=== PATIENT | female | born 1995 | race Caucasian/White ===

== ENCOUNTER 2019-01-17 16:53 | Emergency (ER) | payer MEDICAID, OTHER ==
[2019-01-17 17:36] LABS: BASOPHILS # (AUTO) 0.1 10^3/uL (0.0-0.1); BASOPHILS % (AUTO) 0.7 %; EOSINOPHILS # (AUTO) 0.3 10^3/uL (0.0-0.7); EOSINOPHILS % (AUTO) 3.3 %; HGB - HEMOGLOBIN 13.1 g/dL (12.0-16.0); LYMPHOCYTES # (AUTO) 2.6 10^3/uL (1.5-3.5); LYMPHOCYTES % (AUTO) 27.4 %; MEAN CORPUSCULAR HGB CONC 34.3 g/dL (32.0-36.0); MEAN CORPUSCULAR VOLUME 87.6 fL (81.0-99.0); MEAN PLATELET VOLUME 9.1 fL (7.9-10.8); MONOCYTES # (AUTO) 0.5 10^3/uL (0.0-1.0); MONOCYTES % (AUTO) 5.4 %; NEUTROPHILS # (AUTO) 5.9 10^3/uL (1.5-6.6); NEUTROPHILS % (AUTO) 62.8 %; PLT - PLATELET COUNT 428 10^3/uL (130-450); RED BLOOD COUNT 4.36 10^6/uL (4.20-5.40); RED CELL DISTRIBUTION WIDTH 11.8 % (12.0-15.0); WHITE BLOOD COUNT 9.4 x10^3/uL (4.8-10.8)
[2019-01-17 17:48] LABS: ALBUMIN 4.4 g/dL (3.2-5.5); ALBUMIN/GLOBULIN RATIO 1.4 (1.0-2.2); BILIRUBIN,TOTAL 0.6 mg/dL (0.2-1.0); CALCIUM 9.9 mg/dL (8.5-10.3); CREATININE 0.7 mg/dL (0.4-1.0); TOTAL PROTEIN 7.6 g/dL (6.7-8.2)
[2019-01-17 18:05] LABS: BILIRUBIN,URINE NEGATIVE (NEGATIVE); GLUCOSE, URINE (UA) NEGATIVE (NEGATIVE); KETONES,URINE (UA) 15 mg/dL (NEGATIVE); LEUKOCYTE ESTERASE, URINE NEGATIVE (NEGATIVE); NITRITE,URINE NEGATIVE (NEGATIVE); OCCULT BLOOD,URINE NEGATIVE (NEGATIVE); PROTEIN,URINE NEGATIVE (NEGATIVE); UROBILINOGEN,URINE 0.2 (NORMAL) E.U./dL (NORMAL)
[2019-01-17 18:09] LABS: CLARITY,URINE CLEAR (CLEAR)
--- NOTE | 2019-01-17 19:28 | ED Physician Documentation ---
History of Present Illness - Stated complaint Stated Complaint: FEMALE - Chief complaint Chief Complaint: Abd Pain - History obtained from History obtained from: Patient - History of Present Illness Timing: Today Pain level max: 2 Pain level now: 1 Improved by: nothing Worsened by: nothing - Additonal information Additional information: , EGA 6 weeks. slight vaginal spotting today. Mild cramping. Review of Systems Constitutional: denies: Fever, Chills, Myalgias GI: denies: Vomiting, Diarrhea : denies: Dysuria, Frequency, Hesitancy Skin: denies: Rash Musculoskeletal: denies: Neck pain, Back pain PD PAST MEDICAL HISTORY - Past Medical History Past Medical History: No Cardiovascular: None Respiratory: None Neuro: None Endocrine/Autoimmune: None GI: None YOUTH ASSOCIATE: None : None HEENT: None Psych: None Musculoskeletal: None Derm: None - Past Surgical History Past Surgical History: Yes Ortho: Other - Present Medications Home Medications: Ambulatory Orders Medication Instructions Recorded Confirmed No Known Home Medications 11/01/14 11/01/14 - Allergies Allergies/Adverse Reactions: Allergies Allergy/AdvReac Type Severity Reaction Status Date / Time No Known Drug Allergies Allergy Verified 01/17/19 17:03 - Social History Does the pt smoke?: No Smoking Status: Never smoker Does the pt drink ETOH?: No Does the pt have substance abuse?: No - Immunizations Immunizations are current?: Yes - POLST Patient has POLST: No PD ED PE NORMAL - Vitals Vital signs reviewed: Yes - General General: Alert and oriented X 3, No acute distress, Well developed/nourished - HEENT HEENT: Moist mucous membranes - Neck Neck: Supple, no meningeal sign - Cardiac Cardiac: RRR - Respiratory Respiratory: No respiratory distress, Clear bilaterally - Abdomen Abdomen: Soft, Non tender, Non distended - Back Back: No CVA TTP, No spinal TTP - Derm Derm: Warm and dry - Extremities Extremities: No edema - Neuro Neuro: Alert and oriented X 3 - Psych Psych: Normal mood, Normal affect Results - Vitals Vitals: Vital Signs - 24 hr 01/17/19 01/17/19 17:00 21:55 Temperature 36.9 C 36.6 C Heart Rate 95 73 Respiratory 19 18 Rate Blood Pressure 120/75 115/74 O2 Saturation 98 99 Oxygen O2 Source Room air - Labs Labs: Laboratory Tests 01/17/19 01/17/19 01/17/19 17:29 17:31 17:31 WBC 9.4 RBC 4.36 Hgb 13.1 Hct 38.2 MCV 87.6 MCH 30.0 MCHC 34.3 RDW 11.8 L Plt Count 428 MPV 9.1 Neut # (Auto) 5.9 Lymph # (Auto) 2.6 [place] # (Auto) 0.5 Eos # (Auto) 0.3 Baso # (Auto) 0.1 Absolute Nucleated RBC 0.00 Nucleated RBC % 0.0 Sodium 137 Potassium 3.6 Chloride 104 Carbon Dioxide 22 Anion Gap 11.0 BUN 10 Creatinine 0.7 Estimated GFR (MDRD) 104 Glucose 84 Calcium 9.9 Total Bilirubin 0.6 AST 16 ALT 14 Alkaline Phosphatase 52 Total Protein 7.6 Albumin 4.4 Globulin 3.2 Albumin/Globulin Ratio 1.4 Lipase 32 HCG, Quant 19970.00 Urine Color Urine Clarity Urine pH Ur Specific Bronson Urine Protein Urine Glucose (UA) Urine Ketones Urine Occult Blood Urine Nitrite Urine Bilirubin Urine Urobilinogen Ur Leukocyte Esterase Ur Microscopic Review Urine Culture Comments Blood Type 01/17/19 01/17/19 17:58 20:21 WBC RBC Hgb Hct MCV MCH MCHC RDW Plt Count MPV Neut # (Auto) Lymph # (Auto) [place] # (Auto) Eos # (Auto) Baso # (Auto) Absolute Nucleated RBC Nucleated RBC % Sodium Potassium Chloride Carbon Dioxide Anion Gap BUN Creatinine Estimated GFR (MDRD) Glucose Calcium Total Bilirubin AST ALT Alkaline Phosphatase Total Protein Albumin Globulin Albumin/Globulin Ratio Lipase HCG, Quant Urine Color YELLOW Urine Clarity CLEAR Urine pH 6.0 Ur Specific [place]onson 1.010 Urine Protein NEGATIVE Urine Glucose (UA) NEGATIVE Urine Ketones 15 H Urine Occult Blood NEGATIVE Urine Nitrite NEGATIVE Urine Bilirubin NEGATIVE Urine Urobilinogen 0.2 (NORMAL) Ur Leukocyte Esterase NEGATIVE Ur Microscopic Review NOT INDICATED Urine Culture Comments NOT INDICATED Blood Type O POSITIVE - Rads (name of study) OB US Radiology: Prelim report reviewed, EMP read contemporaneously, See rad report (Single intrauterine of uncertain viability, at EGA 6 weeks/0 days with ALO 09/12/2019 based on crown-rump length. 2. Challenging assessment of heart rate due to tiny CRL (less than 7 mm). 3. Two small perigestational collection/ hematoma measuring 1.1 x 0.5 cm and 0.8 x 0.4 cm. 4. A repeat ultrasound is recommended in 1-2 weeks for viability. ) PD MEDICAL DECISION MAKING - ED course Complexity details: reviewed results, re-evaluated patient, considered differential, d/w patient, d/w family ED course: Patient with a threatened miscarriage today. She does appear to have an intrauterine at this time. We will have her follow-up with her OB in 3 days for repeat hCG. She should have a repeat ultrasound in 1 to 2 weeks as well. Patient counseled regarding signs and symptoms for which I believe and urgent re-evaluation would be necessary. Patient with good understanding of and agreement to plan and is comfortable going home at this time This document was made in part using voice recognition software. While efforts are made to proofread this document, sound alike and grammatical errors may occur. Departure - Departure Disposition: 01 Home, Self Care Clinical Impression: Vaginal bleeding in patient at less than 20 weeks gestation Condition: Good Instructions: ED Miscarriage Poss, ED Preg Established Normal Sxs Follow-Up: your,doctor in 3 days for repeat HCG [Other] Comments: Return if you worsen. Follow-up with your doctor in 3 days for repeat hCG. It was 22,000 today. You are approximately 6 weeks and 2 days along Discharge Date/Time: 01/17/19 21:56
[2019-01-17 21:56] VITALS: BP 115/74
--- NOTE | 2019-01-17 21:59 | Ultrasound Report ---
Reason: 6 weeks EGA, pelvic cramping, vag bleed Procedure Date: 01/17/2019 Accession Number: [id number] / [id number] Procedure: US - OB First Trimester CPT Code: FULL RESULT: EXAM: FIRST TRIMESTER OBSTETRIC ULTRASOUND (Less than 11 weeks) EXAM DATE: 01/17/2019 09:09 PM. CLINICAL HISTORY: 6 weeks EGA, pelvic cramping, vag bleed. LMP: Unknown. COMPARISONS: None. TECHNIQUE: Transabdominal and transvaginal ultrasound examination with static image documentation. ASSESSMENT: Gestational Sac: Single intrauterine. Mean gestational sac diameter: 13 mm = 6 weeks/1 days. Embryo: CRL (crown-rump length) 4 mm = 6 weeks/0 days. Cardiac activity: ?114 beats per minute. Challenging assessment of heart rate due to tiny CRL. Yolk sac: 3 mm. Other: A small perigestational fluid collection inferiorly, measuring 1.1 x 0.5 cm. Another smaller perigestational fluid collection superiorly measuring 0.8 x 0.4 cm. MATERNAL STRUCTURES: Uterus: Anteverted/Retroverted. Unremarkable. Cervix: Closed. Right Ovary/Adnexa: The ovary measures 3.4 x 2.4 x 2.5 cm, volume 10.4 cc. A corpus luteal cyst seen measuring 1.6 x 1.9 x 2 cm Left Ovary/Adnexa: The ovary measures 3.3 x 1.6 x 1.6 cm, volume 4.5 cc. Unremarkable. Free Fluid: None. Other: None. IMPRESSION: 1. Single intrauterine of uncertain viability, at EGA 6 weeks/0 days with ALO 09/12/2019 based on crown-rump length. 2. Challenging assessment of heart rate due to tiny CRL (less than 7 mm). 3. Two small perigestational collection/ hematoma measuring 1.1 x 0.5 cm and 0.8 x 0.4 cm. 4. A repeat ultrasound is recommended in 1-2 weeks for viability. RADIA
== END 2019-01-17 21:56 | disposition home or self-care (01) ==
LOC: ED 16:53
DX: O20.0 Threatened abortion (principal); O26.851 Spotting complicating pregnancy, first trimester; Z3A.01 Less than 8 weeks gestation of pregnancy
CPT/HCPCS: 36415; 76801; 76817; 80053; 81001; 81003; 81025; 83690; 84702; 85025; 86850; 86900; 86901; 87086; 99283

== ENCOUNTER 2019-04-26 06:51 | Outpatient (CLI) | payer BC ==
--- NOTE | 2019-04-29 12:20 | Ultrasound Report ---
Reason: SUPER OF NORMAL 1ST Procedure Date: 04/26/2019 Accession Number: [id number] / [id number] Procedure: US - OB Detailed Eval CPT Code: FULL RESULT: EXAM: COMPLETE OBSTETRICAL ULTRASOUND EXAM DATE: 04/26/2019 08:30 AM. CLINICAL HISTORY: anatomic survey. COMPARISON: OB FIRST TRIMESTER 01/17/2019 8:35 PM. TECHNIQUE: Real-time sonographic evaluation of the fetus performed by the boot maker. Multiple international sales representative static images were saved for review. DATING: Established EGA 20 weeks 3 days with ALO 09/10/2019 based on LMP. EGA 20 weeks 1 day with ALO 09/12/2019 based on prior ultrasound of 01/17/2019. EGA 20 weeks 1 day with ALO 09/12/2019 based on the current ultrasound. GENERAL EVALUATION Zuñiga . Cardiac activity: 137 bpm. movement: Present. Presentation: Cephalic. Placenta: Anterior position. No evidence for previa. Umbilical cord: 3 vessel cord. Central placental cord origin. Amniotic fluid: Subjectively normal. MVP 4.1 cm. BIOMETRY Bi-Parietal Diameter (BPD): 4.9 cm, 20 weeks 5 days Head Circumference (HC): 18.2 cm, 20 weeks 4 days Abdominal Circumference (AC): 15.7 cm, 20 weeks 6 days Femur Length (FL): 3.1 cm, 19 weeks 4 days Estimated Weight: 345 g, 38th percentile for 20 weeks 3 days. ANATOMY The intracranial structures, profile, face/nose/lips, spine, 4 chamber heart and outflow tracts, stomach, abdominal wall and cord insertion, diaphragm, kidneys, bladder, and extremities were imaged and demonstrate no abnormality. There is a possible echogenic intracardiac focus which as an isolated finding is of doubtful clinical significance. MATERNAL STRUCTURES Uterus: Unremarkable. Cervix: Long and closed. Transabdominal length 3 cm. Right ovary/adnexa: Unremarkable. Left ovary/adnexa: Unremarkable. Free fluid: None. IMPRESSION: 1. Zuñiga intrauterine with gestational age 20 weeks 3 days based on LMP. 2. Estimated weight is within expected limits for assigned dating. 3. Normal anatomic survey. No anatomic abnormalities are detected at this time. RADIA
== END 2019-04-26 06:52 | disposition home or self-care (01) ==
LOC: DI 06:51
PROVIDERS: ATTEND Obstetrics & Gynecology
DX: Z34.00 Encounter for supervision of normal first pregnancy, unspecified trimester (principal)
CPT/HCPCS: 76811

== ENCOUNTER 2019-08-15 16:00 | Outpatient (CLI) | payer BC, OTHER ==
[2019-08-16 20:45] LABS: TRICHOMONAS VAGINALIS DNA NEGATIVE (NEGATIVE)
== END 2019-08-15 23:59 | disposition home or self-care (01) ==
LOC: LAB.R 16:00
PROVIDERS: ATTEND Obstetrics & Gynecology
DX: Z36.85 Encounter for antenatal screening for Streptococcus B (principal); Z11.3 Encounter for screening for infections with a predominantly sexual mode of transmission
CPT/HCPCS: 87491; 87591; 87661; 87797

== ENCOUNTER 2019-09-09 07:40 | Inpatient (IN) | payer OTHER, MEDICAID ==
[2019-09-09] MEDS ORDERED: SODIUM CHLORIDE FLUSH 0.9% 10 ML SYRINGE IVP PRN ×2 (07:49→09:47)
[2019-09-09] MEDS ORDERED: LACTATED RINGERS 1,000 ML IV SCH ×2 (08:00→10:00)
[2019-09-09] MEDS ORDERED: OXYTOCIN/SODIUM CHLORIDE 500 ML IV PRN (09:47)
[2019-09-09] MEDS ORDERED: METOCLOPRAMIDE 10 MG/2 ML VIAL IVP PRN (09:47)
[2019-09-09] MEDS ORDERED: ONDANSETRON ODT 4 MG TABLET TL PRN (09:47)
[2019-09-09] MEDS ORDERED: miSOPROStoL 200 MCG TABLET PR SCH (09:47)
[2019-09-09] MEDS ORDERED: miSOPROStoL 200 MCG TABLET PR PRN (09:47)
[2019-09-09] MEDS ORDERED: METOCLOPRAMIDE 10 MG TABLET PO PRN (09:47)
[2019-09-09] MEDS ORDERED: METHYLERGONOVINE 0.2 MG/ML VIAL IM PRN (09:47)
[2019-09-09] MEDS ORDERED: ONDANSETRON 4 MG/2 ML VIAL IVP PRN (09:47)
[2019-09-09] MEDS ORDERED: ACETAMINOPHEN 325 MG TABLET PO PRN (09:47)
[2019-09-09] MEDS ORDERED: CARBOPROST TROMETHAMINE 250 MCG/ML AMP IM PRN (09:47)
[2019-09-09] MEDS ORDERED: fentaNYL 100 MCG/2 ML VIAL IVP PRN (09:47)
--- NOTE | 2019-09-09 09:51 | HISTORY & PHYSICAL EXAMINATION ---
Admit History - Visit Reason Visit Reason: Other - : 1 Parity: 0 Care: positive: [facility] Risk/History: positive: None Complications This : positive: None, Other (55# weight gain in ) Smoking Status: Never smoker - Mother's Labs Mother's Blood Type: positive: O Mother's RH: positive: Positive GBS: positive: Group B Step Negative - Other Maternal History Other Maternal History: O pos/Rub imm DATING: LMP 12/04/18 gives ALO 09/12/2019 US 01/17/19 at 6w0d --> ALO 09/12/19 FAS: Anterior, 3VC. EFW 38% FAS wnl QUAD wnl Glucola 66 TDaP 06/13/19 Influenza 05/16/19 HSV: denies GBS neg Vertex confirmed by US Meds/Allgy - Home Medications Home Medications: Ambulatory Orders Medication Instructions Recorded Confirmed No Known Home Medications 11/01/14 11/01/14 - Allergies Allergies/Adverse Reactions: Allergies Allergy/AdvReac Type Severity Reaction Status Date / Time No Known Drug Allergies Allergy Verified 01/17/19 17:03 Review of Systems - Other Findings Other Findings: As per HPI otherwise remaining systems are negative. Physical - Abdominal Exam Vital Signs: Reviewed in centricity WNL - Monitoring Heart Rate Baseline: 155 Strip Review: positive: Category I - Presentation Presentation: positive: Vertex - Vaginal Exam Dilation (in cm): 0 Effacement (%): 20 Station: positive: -3 - Other Notes Labor Progress Note/Additional Text: SVE from prior clinic exam; no ctx Plan for Labor - Plan For Labor Plan for Labor: IOL: R/B/A reviewed Written informed consent obtained Low Bishops score; will proceed with cervical ripening with misoprostol -Discussed Roblero balloon Pitocin when favorable Confirmed vertex at admission with bedside us FWD: well grown, vertex, GBS neg, Cat I tracing -CEFM PAIN: Epidural when desired Fentanyl to max dose of 200 mcg and not after 7 cm Nitrous oxide as desired Anticipate
[2019-09-09] MEDS ORDERED: OXYTOCIN/SODIUM CHLORIDE 500 ML IV SCH (10:00)
[2019-09-09 10:09] LABS: BASOPHILS % (AUTO) 0.3 %; EOSINOPHILS % (AUTO) 0.1 %; HGB - HEMOGLOBIN 12.7 g/dL (12.0-16.0); LYMPHOCYTES # (AUTO) 0.5 10^3/uL (1.5-3.5); LYMPHOCYTES % (AUTO) 3.8 %; MEAN CORPUSCULAR HEMOGLOBIN 29.1 pg (27.0-31.0); MEAN CORPUSCULAR HGB CONC 33.4 g/dL (32.0-36.0); MEAN PLATELET VOLUME 9.7 fL (7.9-10.8); MONOCYTES # (AUTO) 0.4 10^3/uL (0.0-1.0); MONOCYTES % (AUTO) 3.5 %; NEUTROPHILS # (AUTO) 11.7 10^3/uL (1.5-6.6); NEUTROPHILS % (AUTO) 91.5 %; PLT - PLATELET COUNT 338 10^3/uL (130-450); RED BLOOD COUNT 4.37 10^6/uL (4.20-5.40); RED CELL DISTRIBUTION WIDTH 12.8 % (12.0-15.0); WHITE BLOOD COUNT 12.7 x10^3/uL (4.8-10.8)
[2019-09-09] MEDS: SODIUM CHLORIDE FLUSH 0.9% 10 ML SYRINGE IVP SCH (10:53)
[2019-09-09] MEDS: miSOPROStoL 100 MCG TABLET BC SCH ×3 (11:41→23:30)
[2019-09-09] MEDS ORDERED: miSOPROStoL 100 MCG TABLET ONE (11:42)
[2019-09-09] MEDS ORDERED: ACETAMINOPHEN 500 MG TABLET PO PRN (15:16)
[2019-09-09] MEDS: ACETAMINOPHEN 500 MG TABLET PO PRN (15:30)
[2019-09-09] MEDS ORDERED: SODIUM CHLORIDE FLUSH 0.9% 10 ML SYRINGE IVP SCH (17:00)
[2019-09-09] MEDS ORDERED: diphenhydrAMINE INJ 50 MG/ML VIAL IVP PRN (20:22)
--- NOTE | 2019-09-10 00:42 | PROVIDER PROGRESS NOTE ---
Subjective - Prog Note Date Prog Note Date: 09/10/19 Prog Note Time: 00:41 - Subjective Subjective: Getting 25 mcg misoprostol given tachycardia at 50 mcg dose EFM currently 125 mod steven 15x15 accels no decels TOCO; quiet Cont with cervical ripening with miso Objective - Vital Signs/Intake & Output Intake & Output: Intake & Output 09/07/19 09/08/19 09/09/19 09/10/19 23:59 23:59 23:59 23:59 Intake Total 1500 Balance 1500 - Lab Results Fish Bones: 09/09/19 09:50 Other Labs: Lab Results x24hrs 09/09/19 Range/Units 09:50 WBC 12.7 H (4.8-10.8) x10^3/uL RBC 4.37 (4.20-5.40) 10^6/uL Hgb 12.7 (12.0-16.0) g/dL Hct 38.0 (37.0-47.0) % MCV 87.0 (81.0-99.0) fL MCH 29.1 (27.0-31.0) pg MCHC 33.4 (32.0-36.0) g/dL RDW 12.8 (12.0-15.0) % Plt Count 338 (130-450) 10^3/uL MPV 9.7 (7.9-10.8) fL Neut # (Auto) 11.7 H (1.5-6.6) 10^3/uL Lymph # (Auto) 0.5 L (1.5-3.5) 10^3/uL [place] # (Auto) 0.4 (0.0-1.0) 10^3/uL Eos # (Auto) 0.0 (0.0-0.7) 10^3/uL Baso # (Auto) 0.0 (0.0-0.1) 10^3/uL Absolute Nucleated RBC 0.00 x10^3/uL Nucleated RBC % 0.0 /100WBC
[2019-09-10] MEDS: miSOPROStoL 100 MCG TABLET BC SCH (06:07)
[2019-09-10] MEDS: SODIUM CHLORIDE FLUSH 0.9% 10 ML SYRINGE IVP SCH (10:36)
--- NOTE | 2019-09-10 12:49 | PROVIDER PROGRESS NOTE ---
Labor Progress Note - Uterine Monitoring Uterine Monitoring Mode: positive: External toco Contraction Frequency (min/apart): 3-4 Contraction Intensity: positive: Moderate Uterine Resting Tone: positive: Soft - Monitoring Monitor Mode: positive: External ultrasound Heart Rate Baseline: 125 Heart Rate Variability: positive: Moderate (6-25 bmp) Accelerations: positive: Present, 15x15 Decelerations: positive: None Strip Review: positive: Category I - Vaginal Exam Dilation (in cm): defered - Labor Progress Note Labor Progress Note/Additional Text: will allow contractions to build
--- NOTE | 2019-09-10 17:39 | PROVIDER PROGRESS NOTE ---
Labor Progress Note - Uterine Monitoring Uterine Monitoring Mode: positive: External toco Contraction Frequency (min/apart): 4 Contraction Intensity: positive: Moderate to strong Uterine Resting Tone: positive: Soft - Monitoring Monitor Mode: positive: External ultrasound Heart Rate Baseline: 130 Heart Rate Variability: positive: Moderate (6-25 bmp) Accelerations: positive: Present, 15x15 Decelerations: positive: None Strip Review: positive: Category I - Vaginal Exam Dilation (in cm): 3 Effacement (%): 100% Station: 1 Cervical Position: Midposition - Labor Progress Note Labor Progress Note/Additional Text: Pt is progressing but has temp37.3
--- NOTE | 2019-09-10 19:46 | PROVIDER PROGRESS NOTE ---
Labor Progress Note - Uterine Monitoring Contraction Frequency (min/apart): 3-4 Contraction Intensity: positive: Moderate to strong Uterine Resting Tone: positive: Soft - Monitoring Monitor Mode: positive: External ultrasound Heart Rate Baseline: 135 Heart Rate Variability: positive: Moderate (6-25 bmp) Accelerations: positive: Present, 15x15 Decelerations: positive: None Strip Review: positive: Category I - Vaginal Exam Dilation (in cm): 5 Effacement (%): 100 Station: 1 Cervical Position: Anterior - Labor Progress Note Labor Progress Note/Additional Text: continues to progress
[2019-09-10] MEDS ORDERED: ROPIVACAINE 0.2% 200 MG/100 ML BAG EP ONE (21:24)
[2019-09-10] MEDS: DEXTROSE 5%-LACTATED RINGERS 1,000 ML IV SCH (21:30)
[2019-09-10] MEDS ORDERED: ROPIVACAINE 0.2% PF 20ML VIAL ONE (21:40)
--- NOTE | 2019-09-10 22:27 | ANESTHESIA ---
Pre-Anesthesia VS, & Labs - Diagnosis term labor, IUP - Procedure vaginal delivery Vital Signs: Temp Pulse Resp BP Pulse Ox 37.6 C H 109 H 18 123/84 H 09/09/19 15:00 09/09/19 15:00 09/09/19 15:00 09/09/19 15:00 Height 5 ft 5 in Weight (kg) 85.275 kg Body Mass Index 22.4 - Is Patient ?: Yes - Lab Results Current Lab Results: Laboratory Tests 09/09/19 09:50: WBC 12.7 H, RBC 4.37, Hgb 12.7, Hct 38.0, MCV 87.0, MCH 29.1, MCHC 33.4, RDW 12.8, Plt Count 338, MPV 9.7, Neut # (Auto) 11.7 H, Lymph # (Auto) 0.5 L, [place] # (Auto) 0.4, Eos # (Auto) 0.0, Baso # (Auto) 0.0, Absolute Nucleated RBC 0.00, Nucleated RBC % 0.0 Lab results reviewed: Yes Fish Bones: 09/09/19 09:50 Home Medications and Allergies Active Medications Acetaminophen (Tylenol) 1,000 mg PO Q4HR PRN PRN Reason: Pain or Fever > 38C (100.4F) Last Admin: 09/09/19 15:30 Dose: 1,000 mg Diphenhydramine HCl (Benadryl Inj) 25 mg IVP Q6H PRN PRN Reason: Allergy Symptoms Last Admin: 09/09/19 23:30 Dose: 25 mg Fentanyl (Fentanyl) 50 mcg IVP Q1H PRN PRN Reason: PAIN Lactated Ringer's (Lr) 1,000 mls @ 100 mls/hr IV .Q10H YOHANA Last Admin: 09/09/19 14:21 Dose: 999 mls/hr Oxytocin/Sodium Chloride (Pitocin/Sodium Chloride) 500 mls @ 1 mls/hr IV TITR YOHANA; Protocol Oxytocin/Sodium Chloride (Pitocin/Sodium Chloride) 500 mls @ 999 mls/hr IV PRN PRN; Protocol PRN Reason: POST- HEMORR PREVENTION Stop: 09/11/19 09:46 Methylergonovine Maleate (Methergine Inj) 0.2 mg IM Q4H PRN PRN Reason: Post- Hemorrhage Metoclopramide HCl (Reglan) 5 mg PO Q6H PRN PRN Reason: Nausea / Vomiting Metoclopramide HCl (Reglan Inj) 5 mg IVP Q6H PRN PRN Reason: Nausea / Vomiting Misoprostol (Cytotec) 50 mcg BC Q4HR [facility] Last Admin: 09/10/19 06:07 Dose: 25 mcg Ondansetron HCl (Zofran Inj) 4 mg IVP Q4HR PRN PRN Reason: Nausea / Vomiting Last Admin: 09/09/19 10:52 Dose: 4 mg Ondansetron HCl (Zofran Odt) 4 mg TL Q4HR PRN PRN Reason: Nausea / Vomiting Sodium Chloride (Normal Saline Flush 0.9%) 10 ml IVP PRN PRN PRN Reason: NEEDED PER PROVIDER ORDERS Sodium Chloride (Normal Saline Flush 0.9%) 10 ml IVP 0100,0900,1700 [facility] Last Admin: 09/10/19 10:36 Dose: 10 ml Sodium Chloride (Normal Saline Flush 0.9%) 10 ml IVP 0100,0900,1700 [facility] Sodium Chloride (Normal Saline Flush 0.9%) 10 ml IVP PRN PRN PRN Reason: NEEDED PER PROVIDER ORDERS No Known Home Medications 11/01/14 Allergies/Adverse Reactions: Allergies Allergy/AdvReac Type Severity Reaction Status Date / Time No Known Drug Allergies Allergy Verified 01/17/19 17:03 Anes History & Medical History - Anesthetic History Anesthesia Complications: reports: No previous complications Family history of Anesthesia Complications: Denies Family history of Malignant Hyperthermia: Denies - Medical History Cardiovascular: reports: None Pulmonary: reports: None Gastrointestinal: reports: None Urinary: reports: None Neuro: reports: None Musculoskeletal: reports: None Endocrine/Autoimmune: reports: None Blood Disorders: reports: None Skin: reports: None Smoking Status: Never smoker - Surgical History Orthopedic: Other Other Past Surgical History: thumb surgery - Obstetrical History : 1 Parity: 0 Events: positive: None Complications: positive: None, Other (55# weight gain in ) Exam General: Alert, Oriented x3, Cooperative Dental: WNL Mouth Openin Fingerbreadth Neck Mobility: Normal Mallampati classification: II Thyromental Distance: 4-6 cm Respiratory: No respiratory distress Cardiovascular: Regular rate Neurological: Normal speech Mental/Cognitive Status: Alert/Oriented X3, Normal for patient Cognitive Status: Within normal limits Plan Anesthesia Type: Epidural Consent for Procedure(s) Verified and Reviewed: Yes Code Status: Attempt Resuscitation ASA classification: 2-Mild systemic disease Is this case an emergency?: No
[2019-09-10] MEDS ORDERED: diphenhydrAMINE INJ 50 MG/ML VIAL IVP PRN (22:30)
[2019-09-10] MEDS ORDERED: ePHEDrine 50 MG/ML VIAL IVP PRN (22:30)
[2019-09-10] MEDS ORDERED: NALBUPHINE 10 MG/ML AMP IVP PRN (22:30)
[2019-09-10] MEDS ORDERED: ONDANSETRON 4 MG/2 ML VIAL IVP PRN (22:30)
[2019-09-10] MEDS ORDERED: LACTATED RINGERS 500 ML IV ONE (22:30)
[2019-09-10] MEDS ORDERED: METOCLOPRAMIDE 10 MG/2 ML VIAL IVP PRN (22:30)
[2019-09-10] MEDS ORDERED: ROPIVACAINE 0.2% 200 MG/100 ML BAG EP PRN (22:30)
[2019-09-10] MEDS ORDERED: NALOXONE 0.4 MG/ML VIAL IVP PRN (22:30)
--- NOTE | 2019-09-10 23:00 | PROVIDER PROGRESS NOTE ---
Labor Progress Note - Uterine Monitoring : 4-5 Contraction Intensity: positive: Moderate to strong - Monitoring Monitor Mode: positive: External ultrasound Heart Rate Baseline: 135 Heart Rate Variability: positive: Moderate (6-25 bmp) Accelerations: positive: Present, 15x15 Decelerations: positive: None Strip Review: positive: Category I - Vaginal Exam Dilation (in cm): 5 Effacement (%): 100 Station: 1 Cervical Position: Midposition - Labor Progress Note Labor Progress Note/Additional Text: Contractions are spacing. Strip reassuring. Epidural working well Start pitocin change Iv to D5 LR
[2019-09-10] MEDS ORDERED: DEXTROSE 5%-0.9% NACL 1,000 ML IV SCH (23:45)
[2019-09-10] MEDS ORDERED: OXYTOCIN/SODIUM CHLORIDE 500 ML IV SCH (23:45)
--- NOTE | 2019-09-11 04:02 | PROVIDER PROGRESS NOTE ---
Labor Progress Note - Uterine Monitoring Contraction Frequency (min/apart): 3 Contraction Intensity: positive: Moderate to strong Uterine Resting Tone: positive: Soft - Monitoring Monitor Mode: positive: External ultrasound Heart Rate Baseline: 130 Heart Rate Variability: positive: Minimal (0-5 bpm) Accelerations: positive: Present, 15x15 Decelerations: positive: Early, Intermittent (<50% x20 min) Strip Review: positive: Category I - Vaginal Exam Dilation (in cm): 10 Effacement (%): 100 Station: 2 Cervical Position: Anterior - Labor Progress Note Labor Progress Note/Additional Text: Pt was placed in Walcher's maneuvers. excellent progress decelerations with 3 contractions which have resolved. labor down then start pushing.
[2019-09-11] MEDS: DEXTROSE 5%-LACTATED RINGERS 1,000 ML IV SCH (05:47)
--- NOTE | 2019-09-11 06:08 | PROVIDER PROGRESS NOTE ---
Labor Progress Note - Uterine Monitoring Uterine Monitoring Mode: positive: External toco Contraction Frequency (min/apart): 3 Contraction Intensity: positive: Strong Uterine Resting Tone: positive: Soft - Monitoring Monitor Mode: positive: External ultrasound Heart Rate Baseline: 140 Heart Rate Variability: positive: Minimal (0-5 bpm) Accelerations: positive: Present, 15x15 Decelerations: positive: Early, Intermittent (<50% x20 min) Strip Review: positive: Category I - Vaginal Exam Dilation (in cm): 10 Effacement (%): 100 Station: 3 Cervical Position: Anterior - Labor Progress Note Labor Progress Note/Additional Text: Pt pushing for the last hour. making progress. Pt is tired as expected at 0600. good spirits. expect .
[2019-09-11] MEDS ORDERED: LIDOCAINE-MPF 1% 30 ML VIAL ONE (06:20)
[2019-09-11] MEDS ORDERED: BUFFERED LIDOCAINE 10 ML SYRINGE SUBQ STA (07:12)
[2019-09-11] MEDS ORDERED: WITCH HAZEL/GLYCERIN 1 PAD TOP PRN (07:50)
[2019-09-11] MEDS ORDERED: HYDROCORTISONE 1% CREAM 28 GM TUBE PR PRN (07:50)
[2019-09-11] MEDS ORDERED: diphenhydrAMINE 25 MG CAPSULE PO PRN (07:50)
[2019-09-11] MEDS ORDERED: oxyCODONE 5 MG TABLET PO PRN (07:50)
--- NOTE | 2019-09-11 07:57 | DELIVERY NOTE ---
Delivery Note - Infant Delivery Method Infant Delivery Method: positive: Vacuum assist - Cervical Ripening Method Cervical Ripening Method: positive: Misoprostil - Presentation Presentation: positive: Vertex, MARTIN - left occiput anterior - Nuchal Cord Nuchal Cord: positive: None (right shoulder cord) - Anesthetic Anesthetic Type: Anesthetic: positive: Lidocaine - 1% plain Volume: positive: Other (25 ml) - Vacuum Use Indication for Vacuum Use: positive: Shortening of 2nd stage for maternal benefit, Suspicion of immediate or potential compromise Type of Vacuum Cup: positive: Cup: Mushroom Type, Cup: Rigid Vacuum Extraction: positive: Successful Number of pop-offs: 1 (Pulled with 3 contrasctions. good progress) - Episiotomy Type Episiotomy Type: positive: Midline - Laceration Laceration: positive: 4th degree - Suture Suture Type: positive: Vicryl Suture Size: positive: 3-0 - Delivery Outcome Delivery Outcome: positive: Livebirth - : positive: Bulb syringe, Stimulated, Warmed, Trion used sex: positive: Male (Apgars 7/8) - Cord Cord: positive: 3 vessels - Placenta Placenta: positive: Intact - Estimated Blood Loss Estimated Blood Loss (in cc): 400 - Post Delivery Events Post Delivery Events: positive: No post delivery events - Delivery Comments (Free Text/Narrative) Delivery Comments (Free Text/Narrative): Patient presented to labor and delivery on the evening of 08 September. At this point she is 40 weeks EGA she presents for cervical ripening with induction. She received 4 doses of 25 mcg of misoprostol. She spontaneously ruptured at 1130 on the morning of 09 September. Her labor progressed. She reached 3 cm and then eventually 4 cm at this point it was decided to augment her labor with Pitocin and that her contractions were occurring every 4 to 5 minutes. She utilize nitrous for labor analgesia and eventually an epidural. She progressed to complete at 0 349 on the morning of 10 September. She was allowed to labor down for almost an hour and started pushing at 0 440. She pushed well however during labor she developed bradycardia near the end. For this reason following discussing with the parents a vacuum was placed and pulled through 3 contractions. There was 1 pop-off. During her pulling the vacuum was maintained between 450 and 600. She delivered at 0 657 a live male infant with Apgars 7 and 8 the infant was left occiput anterior. At time of delivery there was a cord noted to be over the shoulder. The remainder the infant was delivered without difficulty and episiotomy was cut at time of delivery se condary to needed room. The episiotomy extended to 1/4 degree laceration. The placenta followed at 0702 was inspected and noted to be intact. A total of 45 seconds of vacuum was utilized during the delivery. The fourth degree laceration was repaired in layers the rectal mucosa was first reapproximated then the vaginal mucosa. The rectovaginal fascia was repaired with [id number] following this the rectal sphincter was reapproximated with figure of eights of 3-0 Vicryl superiorly inferiorly anteriorly and posteriorly. Then the perineal body was repaired with [id number] the remainder of the episiotomy is repaired utilizing 3-0 Vicryl. Estimated blood loss was 400 cc patient and tolerated delivery well.
[2019-09-11] MEDS ORDERED: LACTATED RINGERS 1,000 ML IV SCH (08:00)
[2019-09-11] MEDS: DOCUSATE SODIUM 100 MG CAPSULE PO SCH ×2 (09:01→21:16)
[2019-09-11] MEDS: IBUPROFEN 600 MG TABLET PO SCH ×2 (09:01→16:16)
[2019-09-11] MEDS ORDERED: SIMETHICONE CHEW 80 MG TABLET PO SCH (14:00)
[2019-09-11] MEDS: ACETAMINOPHEN 500 MG TABLET PO PRN (21:16)
[2019-09-12 06:12] LABS: BASOPHILS % (AUTO) 0.3 %; EOSINOPHILS # (AUTO) 0.1 10^3/uL (0.0-0.7); EOSINOPHILS % (AUTO) 1.1 %; HGB - HEMOGLOBIN 9.2 g/dL (12.0-16.0); LYMPHOCYTES % (AUTO) 18.6 %; MEAN CORPUSCULAR HEMOGLOBIN 30.7 pg (27.0-31.0); MEAN CORPUSCULAR HGB CONC 34.7 g/dL (32.0-36.0); MEAN CORPUSCULAR VOLUME 88.3 fL (81.0-99.0); MEAN PLATELET VOLUME 9.4 fL (7.9-10.8); MONOCYTES # (AUTO) 0.7 10^3/uL (0.0-1.0); MONOCYTES % (AUTO) 6.6 %; NEUTROPHILS # (AUTO) 7.9 10^3/uL (1.5-6.6); NEUTROPHILS % (AUTO) 72.7 %; PLT - PLATELET COUNT 253 10^3/uL (130-450); RED CELL DISTRIBUTION WIDTH 12.8 % (12.0-15.0); WHITE BLOOD COUNT 10.9 x10^3/uL (4.8-10.8)
[2019-09-12] MEDS: IBUPROFEN 600 MG TABLET PO SCH ×4 (08:28→20:03)
[2019-09-12] MEDS: ACETAMINOPHEN 500 MG TABLET PO PRN ×2 (08:28→18:00)
[2019-09-12] MEDS: DOCUSATE SODIUM 100 MG CAPSULE PO SCH (08:28)
--- NOTE | 2019-09-12 17:18 | PROVIDER PROGRESS NOTE ---
Subjective - Prog Note Date Prog Note Date: 09/12/19 Prog Note Time: 17:15 - Subjective Pt reports feeling: Improved (Passing Flatus voiding. Pain 08/19.) Objective - Vital Signs/Intake & Output Reviewed Vital Signs: Yes Vital Signs: Vital Signs x48h Temp Pulse Resp BP Pulse Ox 09/12/19 16:47 36.8 C 81 16 126/76 100 Intake & Output: Intake & Output 09/09/19 09/10/19 09/11/19 09/12/19 23:59 23:59 23:59 23:59 Intake Total 2503 023 6508 Output Total 725 Balance 0526 422 6041 - Objective General Appearance: positive: No acute distress, Alert Abdomen: positive: Non-tender, Mass Extremities: positive: Calf tenderness, Caio's sign/cords - Lab Results Fish Bones: 09/12/19 06:05 Other Labs: Lab Results x24hrs 09/12/19 Range/Units 06:05 WBC 10.9 H (4.8-10.8) x10^3/uL RBC 3.00 L (4.20-5.40) 10^6/uL Hgb 9.2 L (12.0-16.0) g/dL Hct 26.5 L (37.0-47.0) % MCV 88.3 (81.0-99.0) fL MCH 30.7 (27.0-31.0) pg MCHC 34.7 (32.0-36.0) g/dL RDW 12.8 (12.0-15.0) % Plt Count 253 (130-450) 10^3/uL MPV 9.4 (7.9-10.8) fL Neut # (Auto) 7.9 H (1.5-6.6) 10^3/uL Lymph # (Auto) 2.0 (1.5-3.5) 10^3/uL Lander # (Auto) 0.7 (0.0-1.0) 10^3/uL Eos # (Auto) 0.1 (0.0-0.7) 10^3/uL Baso # (Auto) 0.0 (0.0-0.1) 10^3/uL Absolute Nucleated RBC 0.00 x10^3/uL Nucleated RBC % 0.0 /100WBC Assessment/Plan - Problem List (1) Fourth degree perineal laceration Impression: stool softener
[2019-09-12] MEDS: DOCUSATE SODIUM 250 MG CAPSULE PO SCH (20:03)
[2019-09-13] MEDS: IBUPROFEN 600 MG TABLET PO SCH ×2 (01:43→07:47)
[2019-09-13] MEDS: ACETAMINOPHEN 500 MG TABLET PO PRN ×2 (01:43→07:47)
[2019-09-13] MEDS: DOCUSATE SODIUM 250 MG CAPSULE PO SCH (07:47)
[2019-09-13 07:57] VITALS: BP 106/62
--- NOTE | 2019-09-13 08:42 | PROVIDER PROGRESS NOTE ---
Subjective - Prog Note Date Prog Note Date: 09/13/19 Prog Note Time: 08:40 - Subjective Pt reports feeling: Improved (feels like stool. passing flatus. Pain 07/19. no stool yet) Objective - Vital Signs/Intake & Output Reviewed Vital Signs: Yes Vital Signs: Vital Signs x48h Temp Pulse Resp BP Pulse Ox 09/13/19 07:51 36.5 C 80 18 106/62 99 Intake & Output: Intake & Output 09/10/19 09/11/19 09/12/19 09/13/19 23:59 23:59 23:59 23:59 Intake Total 900 1775 Output Total 725 Balance 900 1050 - Objective General Appearance: positive: No acute distress, Alert Abdomen: positive: Non-tender, Mass (u-2) Extremities: negative: Calf tenderness, Caio's sign/cords - Lab Results Fish Bones: 09/12/19 06:05 Assessment/Plan - Problem List (1) Fourth degree perineal laceration Impression: healing well (2) Vacuum extractor delivery, delivered Impression: recovering well pt to try MOM Discharge meds Motrin home supply Colace 250 mg bid
--- NOTE | 2019-09-13 08:44 | Discharge Plan ---
Discharge Plan Problem Reviewed?: Yes Disposition: Home, Self Care Condition: Good Diet: Regular Activity Restrictions: Pelvic rest 6 weeks Shower Restrictions: No Driving Restrictions: No Weight Bearing: Full Weight No Smoking: If you smoke, Please STOP! Call for help. Follow-up with: Dano Pina MD [Primary Care Provider] -
--- NOTE | 2019-09-13 12:22 | Labor Flowsheet ---
Labor Flowsheet Datetime Report Generated by CPN: 09/13/2019 12:21 Datetime: 09/12/2019 07:40 VITAL SIGNS NBP Sys/Wilma/Mean (mmHg): 107 : 59 : 69 Pulse: 70 SpO2 (%): 99 LaborFlag: Labor Datetime: 09/11/2019 06:57 UTERINE ACTIVITY Monitor Mode: External Frequency (min): 1.5-3 Quality: Strong Duration (sec): 60-70 Pattern: Normal: <= 5 Contractions in 10 Minutes Resting Tone (Palpate): Relaxed ASSESSMENT A Monitor Mode: External US FHR Baseline Rate : 145 Variability: Moderate 6-25 bpm Accelerations: None Decelerations: Variable Datetime: 09/11/2019 06:55 Vacuum: On Datetime: 09/11/2019 06:50 STAGE 2 Pushing: Coached on Pushing; Urge to Push Pushing Position: Pushing with Contractions Pushing Progress: Descent with Pushing Datetime: 09/11/2019 06:40 Stage 2 Comments: pushing hands and knees Datetime: 09/11/2019 06:34 COMMUNICATION Communication: Call/Page Placed to Provider Provider Notified (Name): Jimenez [employer]ICATOR [employer]ER Communication Comments: FAB[employer]ICATOR FO[employer] 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 side pushing Anesthesia Level Check: T11 Datetime: 09/11/2019 05:13 MEDICATIONS Pitocin (milliunits): Increased to @ 7 Datetime: 09/11/2019 04:00 Vibroacoustic Stim: MATERNAL ASSESSMENT Level of Consciousness: Fully Conscious DTR's/Clonus: DTRs 2+; No Clonus Headache: Denies Breath Sounds, Left: Clear and Equal Breath Sounds, Right: Clear and Equal Nausea/Vomiting: Denies RUQ Epigastric Pain: Denies Datetime: 09/11/2019 03:49 VAGINAL EXAM Dilatation (cm): 10.0 Effacement (%): 100 Station: 2 Exam by: Dr. Giem Datetime: 09/11/2019 02:00 Comments: periods of minimal variability Datetime: 09/11/2019 01:20 Pain Presence: None/Denies Datetime: 09/11/2019 01:06 Monitor Interventions for FHR: Ultrasound Adjusted Datetime: 09/11/2019 00:00 Pain Coping: Sleeping Datetime: 09/10/2019 23:15 Pain Type: N/A Datetime: 09/10/2019 23:07 Respirations: 15 Monitor Interventions for UA: Condon Adjusted Datetime: 09/10/2019 23:02 Pitocin Checklist: At Least 1 Acceleration of 15 bpm x 15 Seconds in 30 Minutes or Adequate Variabi lity; No More than 1 Late Deceleration Occurred in Past 30 Minutes; No More than 2 Variable Decelerat ions > 60 Seconds in Duration and decreasing >60 bpm in 30 minutes; No More than 5 Uterine Contractio ns in 10 Minutes for any 20 Minute Interval; Uterus Palpates Soft between Contractions Datetime: 09/10/2019 22:53 I/O Interventions: Roblero Cath Inserted Datetime: 09/10/2019 22:10 ANESTHESIA Anesthesia Plans: Epidural Epidural Procedure Other: Pump Started Datetime: 09/10/2019 22:02 Epidural Procedure: Loading Dose Datetime: 09/10/2019 21:47 PAIN Pain Scale: 8 Pain Location: Abdomen PROCEDURE TIME OUT Procedure Verify: Correct Patient Identity; Correct Side and Site are Marked; Correct Patient Posit ion Datetime: 09/10/2019 21:30 PATIENT CARE IV/Blood Work: IV Infusing per Order Datetime: 09/10/2019 21:18 Anesthesia Comments: pt requesting epidural Datetime: 09/10/2019 21:02 Pain Relief Measures: Comfort Measures Comfort Measures: Breathing/Relaxation; Family Support Datetime: 09/10/2019 20:00 Stage of : Labor Datetime: 09/10/2019 19:58 Pain Assessment Comments: using nitrous intermittently Datetime: 09/10/2019 19:50 TEACHING Instructional Method: Verbal Plan of Care: Plan of Care Discussed; Labor Pain Management: Epidural; Pain Scale/Goals; Comfort Measures Datetime: 09/10/2019 19:31 Amniotic Fluid Color: Clear Amniotic Fluid Amount: Small Datetime: 09/10/2019 18:56 Contraction Comments: irregular Datetime: 09/10/2019 18:00 Oxygen Method: Room Air Datetime: 09/10/2019 17:21 Notification Reason: Status Update; Status; Labor Status Datetime: 09/10/2019 14:13 Temperature Route: Axillary Datetime: 09/10/2019 11:47 Membranes Ruptured Date/Time: 09/10/2019 11:33 Amniotic Fluid Odor: Normal Datetime: 09/10/2019 11:33 Membrane Status: Ruptured Membranes Rupture Method: Spontaneous Datetime: 09/10/2019 07:50 Vaginal Bleeding: None Unit Routine: Call Meehan Labor/Induction: Cervical Ripening Datetime: 09/10/2019 00:00 Resting Tone IUP (mmHg): Datetime: 09/09/2019 23:27 Analgesics/Sedatives: Benadryl (mg) @ 25 Cervical Ripening Agents: Cytotec @ 25 Datetime: 09/09/2019 19:54 Cervix, Consistency: Moderate Cervix, Position: Midposition Datetime: 09/09/2019 14:31 Medication Comments: LR bolus 500cc
--- NOTE | 2019-09-23 13:14 | DISCHARGE SUMMARY ---
Physician: Ghassan Barnes MD DATE OF ADMISSION: 09/10/2019 DATE OF DISCHARGE: 09/13/2019 ADMITTING DIAGNOSIS: A 23-year-old G1, P0 at 40 weeks, requests elective induction. DISCHARGE DIAGNOSES 1. A 23-year-old G1, P0 at 40 weeks, requests elective induction. 2. Vacuum-assisted vaginal delivery. PROCEDURES PERFORMED 1. Misoprostol. 2. Pitocin. 3. Nitrous oxide. 4. Epidural. 5. Vacuum-assisted vaginal delivery. 6. Repair of first-degree laceration. PRESENTING HISTORY: Patient is a 23-year-old 1, para 0. EDC was 09/12/2019. O positive. Group B strep negative. Her STI checks were negative. Her 50 gram Glucola was 66. Patient presented the morning with request for induction of labor. On presentation, her cervix was 0 cm, 20% effaced and -3. LABORATORIES: CBC on admission showed a white count of 12.7, hemoglobin was 12.7, hematocrit was 38.8, and platelets were 338. On date of discharge, her white count was 10.6, hemoglobin had fallen to 9.2, hematocrit was 26.6, and her platelets were 253. HOSPITAL COURSE: Patient admitted. She received misoprostol for cervical ripening. She spontaneously ruptured and then received Pitocin augmentation. She utilized nitrous oxide for analgesia and eventually needed to use an epidural. She reached complete. She pushed for 2 hours. Because of bradycardia she had decided to proceed on with vacuum. This was placed and pulled through 3 contractions. There was 1 pop-off. There was good excellent progress with each contraction. She delivered a live male with Apgars 7 and 8, with a left occiput anterior. did well. She also did well. She was discharged to home on 09/13/2019 on Motrin and Colace for discharge medications. She is instructed to follow up in the clinic 1 week. TD: 09/23/2019 12:58 MTDEri
== END 2019-09-13 12:15 | disposition home or self-care (01) | DRG 768 ==
LOC: WFO 07:40 → FBP 07:44 → WFO 07:48 → FBP 07:49 → OBSVTOIN 09-10 11:41 → FBP 09-12 13:25
PROVIDERS: ADMIT Obstetrics & Gynecology; ATTEND Obstetrics & Gynecology
PROC: 10D07Z6 Extraction of Products of Conception, Vacuum, Via Natural or Artificial Opening (ICD-10-PCS; principal; 2019-09-11)
PROC: 0DQP0ZZ Repair Rectum, Open Approach (ICD-10-PCS; 2019-09-11)
DX: O76 Abnormality in fetal heart rate and rhythm complicating labor and delivery (principal); Z37.0 Single live birth; O75.2 Pyrexia during labor, not elsewhere classified; O70.3 Fourth degree perineal laceration during delivery; O69.2XX0 Labor and delivery complicated by other cord entanglement, with compression, not applicable or unspecified; Z3A.40 40 weeks gestation of pregnancy
CPT/HCPCS: 36415; 85025; A9270; G0378; J1200; J2795; J7120; 80307